=== PATIENT | male | born 1970 | race Caucasian/White ===

== ENCOUNTER 2018-12-26 09:20 | Emergency (ER) | payer OTHER ==
[~2018-12-26] VITALS: Ht 177.8 cm; Wt 99.8 kg
[2018-12-26] MEDS ORDERED: ATENOLOL 25 MG25 M1 PO (09:30)
[2018-12-26] MEDS ORDERED: ALLOPURINOL 10100 M1 PO (09:30)
[2018-12-26] MEDS ORDERED: HYDROCODONE-AP1 EAC6 PO (09:42)
[2018-12-26] MEDS ORDERED: IBUPROFEN 800800 M1 PO (09:42)
[2018-12-26 10:04] LABS: HEMATOCRIT 41.9 % (42.0-52.0); HEMOGLOBIN 14.5 gm/dL (14.0-18.0); MCH 31.2 pg (26.0-34.0); MCHC 34.6 g/dL (28.0-37.0); MCV 90.3 fL (80.0-100.0); MPV 7.3 fl. (7.2-11.1); RBC 4.64 mil/uL (4.50-6.00); RDW-CV 13.8 % (10.5-14.5); WBC 10.7 thou/uL (4.0-11.0)
[2018-12-26 10:11] LABS: CALCIUM 9.1 mg/dL (8.5-10.1); CREATININE 1.1 mg/dL (0.6-1.3); URIC ACID* 11.1 mg/dL (2.6-7.2)
[2018-12-26 10:12] LABS: POTASSIUM 2.8 mmol/L (3.5-5.1)
[2018-12-26] MEDS ORDERED: MAGNESIUM400 M1 PO (10:34)
[2018-12-26] MEDS ORDERED: K-DUR 20 MEQ T20 MEQ PO ×2 (10:34→10:45)
[2018-12-26 10:58] VITALS: BP 112/54
--- NOTE | 2018-12-29 11:16 | EKG ---
[place] [address] ELECTROCARDIOGRAM REPORT Name: BENJA FRAZIER Room: [facility]#: [id number] Admission: 12/26/18 Attend Phys: Discharge: 12/26/18 Date of : 70 Report #: [id number] THIS REPORT FOR: //name// [facility] ED Test Date: 2018-12-26 Test Time: 10:34:36 Pat Name: BENJA FRAZIER Department: Room: Gender: M Sheriff: : 1970 Requested By: Sin Stein Order Number: [id number] MD: Sabas Kiran Measurements Intervals Brandon Rate: P: AK: QRS: QRSD: T: QT: QTc: Interpretive Statements Sinus rhythm normal EKG Electronically Signed On 12-29-2018 11:16:08 VISITOR SERVICE ASSISTANT by Sabas Kiran [email or web address] <ELECTRONICALLY SIGNED> By: Sabas Kiran MD, [facility] 12/29/18 1116 [id number] Sabas Kiran MD, FACC /EPI
== END 2018-12-26 11:00 | disposition home or self-care (01) ==
LOC: M.ERS 09:20
PROVIDERS: Emergency Medicine Emergency Medical Services
DX: M10.022 Idiopathic gout, left elbow (principal); E87.6 Hypokalemia; I10 Essential (primary) hypertension